=== PATIENT | male | born 1985 | race Caucasian/White ===

== ENCOUNTER 2018-05-11 13:21 | Emergency (ER) | payer OTHER ==
[2018-05-11] MEDS ORDERED: Tetan/Diph/Pertus SYR(Tdap)* 0.5 ML SYR(BOOSTRIX) use SYR IM ONE (13:35)
[2018-05-11] MEDS ORDERED: Cephalexin CAP* 500 MG PO ONE (14:48)
[2018-05-11] MEDS ORDERED: Ibuprofen TAB* 600 MG PO ONE (14:48)
--- NOTE | 2018-05-11 16:16 | ED ---
Upper Extremity Pain - HPI Summary HPI Summary: [id number] patient here with left index finger injury prior to arrival. He reports he was using a instrument lens grinder at work when he accidentally tapped the dorsal aspect of his distal left index finger and lacerated his skin. He is also concerned as the tip of his finger is now sagging and he cannot straighten it out. Bleeding controlled with pressure. He also reports some debris and/or burnt skin which he's tried to pick out prior to arrival. Pain is mild and he denies numbness, tingling. He is able to flex and extend every other joint this finger as well as his hand. His last tetanus vaccine was greater than 6 years ago. He's concerned as he uses his hands for work as well as for playing guitar (the latter is recreational). - History of Current Complaint Chief Complaint: EDExtremityUpper Stated Complaint: LT INDEX FINGER LAC Time Seen by Provider: 05/11/18 13:35 Hx Obtained From: Patient - Allergies/Home Medications Allergies/Adverse Reactions: Allergies Allergy/AdvReac Type Severity Reaction Status Date / Time No Known Allergies Allergy Verified 05/11/18 13:26 PMH/Surg Hx/FS Hx/Imm Hx Previously Healthy: Yes Endocrine/Hematology History: Denies: Hx Anticoagulant Therapy, Hx Blood Disorders, Hx Diabetes, Autoimmune Disease - Immunization History Immunizations Up to Date: No Infectious Disease History: No Infectious Disease History: Denies: Traveled Outside the [place] in Last 30 Days - Social History Occupation: Employed Full-time - contractor Lives: With Family Alcohol Use: Occasionally Hx Substance Use: No Substance Use Type: Reports: None Hx Tobacco Use: Yes Smoking Status (MU): Current Every Day Smoker Review of Systems Constitutional: Negative Positive: no symptoms reported Positive: Arthralgia, Decreased ROM Skin: Other - lac Positive: Weakness. Negative: Paresthesia, Numbness Psychological: Normal All Other Systems Reviewed And Are Negative: Yes Physical Exam Triage Information Reviewed: Yes Vital Signs On Initial Exam: Initial Vitals Temp Pulse Resp BP Pulse Ox 97.3 F 101 19 163/114 100 05/11/18 13:22 05/11/18 13:22 05/11/18 13:22 05/11/18 13:22 05/11/18 13:22 Vital Signs Reviewed: Yes Appearance: Positive: Well-Appearing, No Pain Distress, Well-Nourished Skin: Positive: Warm, Skin Color Reflects Adequate Perfusion - 1.5 cm linear lac over dorsal Lt distal index finger - subcutaneous tissue observed w/ mild debris Head/Face: Positive: Normal Head/Face Inspection Eyes: Positive: EOMI ENT: Positive: Hearing grossly normal Respiratory/Lung Sounds: Positive: Breath Sounds Present Cardiovascular: Positive: Pulses are Symmetrical in both Upper and Lower Extremities Musculoskeletal: Positive: Limited @ - Lt DIP joint is flexed and unable to extend - he is able to flex and extend PIP joint and MCP joint here. Negative: Strength/ROM Intact Neurological: Positive: Normal, Sensory/Motor Intact, Alert, Oriented to Person Place, Time, CN Intact II-III Psychiatric: Positive: Normal Procedures - Laceration/Wound Repair 1 Location: upper extremity - Lt index finger - soaked in hibaclens and water solution x 15 mins Description: Linear Anesthesia: Local, Digital, 1.0%, Lido Length, Depth and Shape: 1.5cm x 3mm Betadine Prep?: Yes Irrigated w/ Saline (ccs): 500 - sterile saline Laceration/Wound Explored: contaminated - mild debris with what appears to be grease, jagged skin edges - scrubbed and irrigated, skin removed Suture Type: Other - 4-0 ethilon Number of Sutures: 4 Layer Closure?: No Sterile Dressing Applied?: Yes - triple anbx + gauze + coban + splint - hemodyn stable - pt ravi well Diagnostics - Vital Signs Vital Signs Temp Pulse Resp BP Pulse Ox 05/11/18 13:22 97.3 F 101 19 163/114 100 - Laboratory Lab Statement: Any lab studies that have been ordered have been reviewed, and results considered in the medical decision making process. Course/Dx - Course Course Of Treatment: XR: no fx, no dislocation, no FB. Discussed extensor tendon injury with Dr. Gaffney who advises good wash out and deep external ethilon sutures through the skin into the tendon with a splint. This was completed and started on keflex. Discussed plan w/ pt who agrees to rest finger nad f/u w/ Dr. Gaffney this coming week. Reviewed danger s/sx of when to seek medical attention sooner. - Diagnoses Provider Diagnoses: Laceration of left index finger with tendon involvement Discharge - Sign-Out/Discharge Documenting (check all that apply): Patient Departure - Discharge Plan Condition: Stable Disposition: HOME Prescriptions: Cephalexin CAP* [Keflex CAP*] 500 mg PO QID #40 cap Ibuprofen TAB* [Motrin TAB* 600 MG] 600 mg PO Q6H PRN #20 tab PRN Reason: Pain Patient Education Materials: Finger Laceration (ED), Care For Your Stitches (ED ) Forms: *Work Release Referrals: Cesia Gaffney MD [Medical Doctor] - Additional Instructions: Keep Dressing clean and dry and in place for the next 48 hours. After that time you may remove dressing, gently wash wound with soap and water, rinse well and pat dry with clean cloth. Reapply triple antibiotic ointment and clean gauze dressing along with splint - do not bend finger while out of splint. Continue this daily until sutures are removed. Call hand specialist, Dr. Gaffney , tomorrow to schedule wound recheck next week. For pain, swelling - rest, ice, elevate and take ibuprofen alternating with acetaminophen. Complete antibiotics as directed. * If you develop redness, swelling, streaking, purulent drainage, fevers or chills, seek medical attention sooner or return to the emergency department. - Billing Disposition and Condition Condition: STABLE Disposition: Home
[2018-05-11 16:46] VITALS: BP 155/74
== END 2018-05-11 16:45 | disposition home or self-care (01) ==
LOC: ED 13:21
DX: S61.211A Laceration without foreign body of left index finger without damage to nail, initial encounter (principal); W31.89XA Contact with other specified machinery, initial encounter; Y92.9 Unspecified place or not applicable; Y99.0 Civilian activity done for income or pay; Z23 Encounter for immunization; F17.200 Nicotine dependence, unspecified, uncomplicated
CPT/HCPCS: 12001; 73140; 90471; 90715; 99282; A9270-GY

== ENCOUNTER 2018-11-28 21:12 | Emergency (ER) | payer SELFPAY ==
[2018-11-28 22:07] VITALS: BP 154/106
[2018-11-28] MEDS ORDERED: Ibuprofen TAB* 600 MG PO ONE (22:10)
--- NOTE | 2018-11-28 22:10 | UC ---
Laceration HPI - HPI Summary HPI Summary: Pt presents to the with laceratio in webspace between thumb and index of left hand. pt is RHD. Pt was using a clean knife to cut frozen butter. Tdap UTP (fall 2017) wound bandaged. Pt state feels slight discomfort to lateral forearm. , no paresthesia medications reviewed - History Of Current Complaint Chief Complaint: UCLaceration Stated Complaint: LEFT HAND LAC Time Seen by Provider: 11/28/18 22:08 Hx Obtained From: Patient Pain Intensity: 4 - Allergies/Home Medications Allergies/Adverse Reactions: Allergies Allergy/AdvReac Type Severity Reaction Status Date / Time No Known Allergies Allergy Verified 11/28/18 22:08 PMH/Surg Hx/FS Hx/Imm Hx Other History Of: Negative For: Anticoagulant Therapy - Surgical History Surgical History: None - Social History Alcohol Use: Occasionally Alcohol Amount: 2 per month Substance Use Type: None Smoking Status (MU): Current Every Day Smoker Amount Used/How Often: 1/2 pack a day for 15 yrs Review of Systems All Other Systems Reviewed And Are Negative: Yes Skin: Positive: Other - laceration left thumb Motor: Positive: Negative Neurovascular: Positive: Negative Musculoskeletal: Positive: Negative Physical Exam - Summary Physical Exam Summary: Vital Signs Reviewed: Yes A+Ox3, no distress Eyes: Conjunctiva Clear ENT: Hearing grossly normal neck: supple Respiratory: Positive: No respiratory distress, No accessory muscle use Cardiovascular: skin color reflect adequate perfusion, 2+ radial CBT <2 sec Musculoskeletal Exam: + flex/ext mcp, IP, full opponens, full abduct, adduct Neurological: Positive: Alert, ambulatory without difficulty + gross sensation throughout Psychological: Positive: Normal Response To Family Skin: Positive: no rash, no ecchymosis 1.5cm laceration webspacing left thumb between thumb and index Triage Information Reviewed: Yes Vital Signs: Initial Vital Signs Temp 99.0 F 11/28/18 22:02 Pulse 81 11/28/18 22:02 Resp 18 11/28/18 22:02 BP 154/106 11/28/18 22:02 Pulse Ox 97 11/28/18 22:02 Laceration Repair - Laceration Repair 1 Procedure Summary: verbal permission to treat time out completed with RN at bedside pt prepped in usual, sterile fashion copious irrigation with 500ml sterile saline under pressure place 3 simple interrupted sutures - pt tolerated well bandage pt tolerated well reviewed with pt wound care s/s infection return precautions Description: Linear Laceration Size After Repair: Length (cm) - 1.5 Modified For Repair: No Type Injection: Local Anesthesia Used: 1.0% Lido Irrigation With Pressure Irrigation Device: Yes Closure Material: Sutures - 4-0 Nylon Closure Method: Single Layer Suture Of: Skin Suture Type: Nylon Laceration Course/Dx - Course/Dx Course Of Treatment: Pt presents to the with a laceration to the web spacing of left thumb thumb/ index tdap utd RHD csm intact wound sutured abx reviewed with pt s/s infection wound care, return precautions pt comfortable and in agreement with plan Pt's MP markedly elevated will request recheck prior to discharge pt without sx recommend f/u with PCP - strict precautions - Diagnosis Provider Diagnosis: Laceration of left hand Discharge - Sign-Out/Discharge Documenting (check all that apply): Patient Departure All imaging exams completed and their final reports reviewed: No Studies - Discharge Plan Condition: Stable Disposition: HOME Prescriptions: Cephalexin CAP* [Keflex 500 CAP*] 500 mg PO TID #21 cap Patient Education Materials: Laceration (ED) Referrals: No Primary Care Phys,NOPCP [Primary Care Provider] - Additional Instructions: - your stitches should come out in 8-10 days - you can return here, go to your Doctor or any urgent care center - okay to alternate ibuprofin (advil, motrin) and tylenol every 3hours as needed for pain -Anticipate increased discomfort over the next several hours as the numbing medication wears off -Keep your wound clean and dry - no soaking for 24 hours. Then, okay for wound to get wet - pat dry, don't rub -apply a thin layer of antibiotic ointment (neosporin, polysporin) 2-3 times a day - take antibiotics as prescribed until gone - keep your wound clean - monitor for signs of infection - reddness, red streaking, odor, green drainage - Contact your doctor or return here with questions or concerns - Billing Disposition and Condition Condition: STABLE Disposition: Home
[2018-11-28] MEDS ORDERED: Lidocaine 2% PF * 5 ML VIAL INJ ONE (22:14)
[2018-11-28] MEDS ORDERED: Cephalexin CAP* 500 MG PO ONE (22:35)
== END 2018-11-28 22:47 | disposition home or self-care (01) ==
LOC: UCEAST 21:12
DX: S61.412A Laceration without foreign body of left hand, initial encounter (principal); W26.0XXA Contact with knife, initial encounter; Y93.G9 Activity, other involving cooking and grilling; Y92.010 Kitchen of single-family (private) house as the place of occurrence of the external cause; Y99.8 Other external cause status; F17.210 Nicotine dependence, cigarettes, uncomplicated
CPT/HCPCS: 12001; 99212; A9270-GY; G0463

== ENCOUNTER 2019-01-14 18:22 | Emergency (ER) | payer SELFPAY ==
[2019-01-14] MEDS ORDERED: NS 0.9% 1000 ML** 2,000 ML IV ONE (19:31)
--- NOTE | 2019-01-14 19:47 | ED ---
Syncope/Near Syncope - HPI Summary HPI Summary: 33 year old M brought in by EMS to [facility] with a chief complaint of syncope on side walk due to heroin drug around 1700, 01/14/10. Patient reports he was sniffing the drug which he does not use often or at all while having drinks at a bar. Patient denies any injuries due to the fall other than an elbow abrasion. Patient reports he feels fine now and denies recent illnesses or other medical problems. Symptoms aggravated by nothing. Symptoms alleviated by nothing. - History Of Current Complaint Chief Complaint: EDAltMentalStatus Time Seen by Provider: 01/14/19 19:28 Hx Obtained From: Patient Timing: Minutes Context: Loss Of Consciousness Aggravating Factor(s): Nothing Alleviating Factor(s): Nothing - Allergies/Home Medications Allergies/Adverse Reactions: Allergies Allergy/AdvReac Type Severity Reaction Status Date / Time No Known Allergies Allergy Verified 11/28/18 22:08 Home Medications: Home Medications NK [No Home Medications Reported] 01/14/19 [History Confirmed 01/14/19] PMH/Surg Hx/FS Hx/Imm Hx Endocrine/Hematology History: Denies: Hx Anticoagulant Therapy, Hx Blood Disorders, Hx Diabetes, Hx Thyroid Disease Cardiovascular History: Denies: Hx Hypertension Respiratory History: Denies: Hx Asthma, Hx Chronic Obstructive Pulmonary Disease (COPD), Other Respiratory Problems/Disorders GI History: Denies: Hx Ulcer Sensory History: Denies: Hx Contacts or Glasses, Hx Hearing Aid Opthamlomology History: Denies: Hx Contacts or Glasses - Surgical History Surgery Procedure, Year, and Place: Tendon reeatched on pointer finger on left hand Hx Anesthesia Reactions: No Infectious Disease History: No Infectious Disease History: Denies: Hx Hepatitis, Hx Human Immunodeficiency Virus (HIV), Traveled Outside the [place] in Last 30 Days - Family History Known Family History: Positive: Cardiac Disease, Diabetes, Other - Underactive thyroid, multiple sclerosis, sister has lupus - Social History Alcohol Use: Occasionally Alcohol Amount: 2 per month Hx Substance Use: Yes Substance Use Type: Reports: Heroin Hx Tobacco Use: Yes Smoking Status (MU): Current Every Day Smoker Amount Used/How Often: 1/2 pack a day for 15 yrs Review of Systems Skin: Other - elbow abrasian Positive: Syncope All Other Systems Reviewed And Are Negative: Yes Physical Exam - Summary Physical Exam Summary: Appearance: Well-appearing, Well-nourished, lying in bed comfortably Skin: Warm, dry, no obvious rash Eyes: sclera anicteric, no conjunctival pallor ENT: mucous membranes moist, pharynx appears normal Neck: Supple, nontender Respiratory: Clear to auscultation, no signs of respiratory distress Cardiovascular: Normal S1, S2. No murmurs. Normal distal pulses in tibial and radial bilaterally. Heart rate elevated at 130 BPM. Abdomen: Soft, nontender, normal active bowel sounds present Musculoskeletal: Normal, Strength/ROM Intact Neurological: A&Ox3, awake and alert, mentation is normal, speech is fluent and appropriate Psychiatric: affect is normal, does not appear anxious or depressed Triage Information Reviewed: Yes Vital Signs On Initial Exam: Initial Vitals Pulse BP Pulse Ox 147 164/93 96 01/14/19 18:26 01/14/19 18:26 01/14/19 18:26 Vital Signs Reviewed: Yes Diagnostics - Vital Signs Vital Signs Temp Pulse Resp BP Pulse Ox 01/14/19 19:00 125 37 97 01/14/19 18:56 119 29 135/83 97 01/14/19 18:29 99.7 F 138 23 164/93 97 01/14/19 18:26 147 164/93 96 - Laboratory Result Diagrams: 01/14/19 19:46 01/14/19 19:46 Lab Statement: Any lab studies that have been ordered have been reviewed, and results considered in the medical decision making process. - EKG 1934 Cardiac Rate: NL - 116 BPM EKG Rhythm: Sinus Tachycardia Summary of EKG Findings: Sinus Tachycardia at 116 BPM, no STEMI, ST elevation. Re-Evaluation - Re-Evaluation First Eval Re-Evaluation Time: 11:00 Comment: Physician discusses discharge with patient. Course/Dx Course Of Treatment: 33 year old M brought in by EMS to [facility] with a chief complaint of syncope on side walk due to heroin drug around 1700, 01/14/10. Patient reports he was sniffing the drug which he does not use often or at all while having drinks at a bar. Physical Exam shows no abnormalities except heart rate is elevated at 130 BPM. Bloodwork shows no abnormalities except for WBC 12.6 H, Absolute Neuts 10.6 H, Creatinine 1.23 H, and Glucose 115 H. Patient was given saline in the ED. EKG shows Sinus Tachycardia at 116 BPM, no STEMI, ST elevation. Physician discussed discharge with patient who agreed to discharge. Patient will be discharged. - Diagnoses Provider Diagnoses: Opioid overdose Discharge - Sign-Out/Discharge Documenting (check all that apply): Patient Departure - discharge Patient Received Moderate/Deep Sedation with Procedure: No - Discharge Plan Condition: Stable Disposition: HOME Patient Education Materials: Opioid Safety (ED) Referrals: [facility] [Outside] - 3 Days Additional Instructions: There were a couple of things we noted on your evaluation that piqued my interest. Your heart rate was quite elevated but improved. This was likely due to the physiologic stress of the overdose on your system and as long as your HR normalizes overnight nothing further need be done. Your blood creatinine level is slightly elevated, indicating a mild compromise to your kidney function. This does not need any specific treatment right now but I would recommend making an appt with a physician over the next few weeks for a physical and to have the blood work rechecked. A common cause of this is OTC pain medications like tylenol or motrin, so if you use a lot of those types of medicines, I would recommend curtailing the dose for now. - Billing Disposition and Condition Condition: STABLE Disposition: Home - Attestation Statements Document Initiated by Aman: Yes Documenting Sheaibe: Yessy Croft Provider For Whom Aman is Documenting (Include Credential): Dr. Alexander Villarreal MD Scribe Attestation: IYessy, scribed for Dr. Alexander Villarreal MD on 01/16/19 at 1804. Scribe Documentation Reviewed: Yes Provider Attestation: The documentation as recorded by the Yessy park accurately reflects the service I personally performed and the decisions made by me, Dr. Alexander Villarreal MD Status of Scribhugo Document: Viewed
[2019-01-14 19:54] LABS: ABS Eosinophils 0.1 10^3/ul (0-0.6); ABS Monocytes 0.8 10^3/ul (0-0.8); ABS Neutrophils 10.6 10^3/ul (1.5-7.7); Eosinophil % 0.5 %; Hematocrit 47 % (42-52); Hemoglobin 15.5 g/dL (14.0-18.0); Lymphocyte % 8.3 %; Mean Corpuscular HGB Conc 33 g/dL (31-36); Mean Corpuscular Hemoglobin 29 pg (27-31); Mean Corpuscular Volume 87 fL (80-94); Mean Platelet Volume 9.5 fL (7.4-10.4); Platelet Count 229 10^3/uL (150-450); Red Blood Count 5.41 10^6 /uL (4.18-5.48); Red Cell Distribution Width 14 % (10-15); White Blood Count 12.6 10^3/uL (3.5-10.8)
[2019-01-14 20:12] LABS: BUN/Creatinine Ratio 11.4 (8-20); EGFR Non-African American 67.8 (>60); Potassium 3.5 mmol/L (3.5-5.0)
[2019-01-14 21:46] VITALS: BP 132/82
== END 2019-01-14 21:44 | disposition home or self-care (01) ==
LOC: ED 18:22
DX: T40.1X1A Poisoning by heroin, accidental (unintentional), initial encounter (principal); Y92.480 Sidewalk as the place of occurrence of the external cause; R00.0 Tachycardia, unspecified; F17.210 Nicotine dependence, cigarettes, uncomplicated
CPT/HCPCS: 36415; 80048; 83605; 85025; 93005; 96360; 96361; 99283